=== PATIENT | male | born 1940 | race Caucasian/White ===

== ENCOUNTER → 2016-07-30 | Outpatient (CLI) | payer MEDICARE, OTHER ==
--- NOTE | 2016-07-31 10:14 | REP ---
PET/CT: HISTORY: Diagnosing lung carcinoma. COMPARISONS: CT scan of the chest from [facility] dated December 25, 2015 and July 02, 2016. These show a peripheral spiculated lesion in the left upper lobe. TECHNIQUE: 86 minutes following the intravenous injection of a 8.0 mCi dose of F-18 FDG, three-dimensional PET scintigraphy is acquired from the skull base to the proximal thighs. Triplanar noncontrast CT scanning is acquired through the same anatomic range for attenuation correction, and image registration with scan parameters optimized to minimize radiation exposure to the patient. PET scintigraphy and CT datasets were fused and displayed on a workstation with multiplanar and projection display capability. PET/CT FINDINGS: There is hypermetabolic uptake in the peripheral mass in the left upper lobe. Maximum standard uptake value is 19.8. Hypermetabolic uptake extends along a linear path craniocaudal dimension in this pleural-based lesion over 3.1 cm. No hypermetabolic hilar or mediastinal linnea uptake is seen. No other hypermetabolic uptake is seen in the chest. There is a large hiatal hernia again noted. No adrenal lesion is seen. There is a focal area of hypermetabolic uptake which projects in the intra-abdominal fat in the left lower quadrant of the abdomen. Corresponding CT images at this level shows only homogeneous normal appearing fatty tissue. 2 cm caudal to this there is a small area of fat necrosis which shows non hypermetabolic uptake. The hypermetabolic uptake in the fatty tissue has maximum standard uptake value 5.1. This is of uncertain etiology and significance. Otherwise abdominal and pelvic uptake pattern is normal. Incidental note is made of bilateral inguinal hernias. A unobstructed loop of sigmoid colon is seen in the left inguinal hernia and the right fundus of the urinary bladder is seen extending into the right inguinal hernia. IMPRESSION: 1. The known left upper lobe lung mass is quite hypermetabolic consistent with malignancy. 2. There is a focus of hypermetabolic uptake in homogeneous normal appearing fatty tissue within the left lower quadrant of the abdomen of uncertain significance. No other abnormal hypermetabolic uptake is seen. 3. Bilateral inguinal hernias are seen containing the urinary bladder on the right and the sigmoid colon on the left. Signed by Brannon Go MD 07/31/2016 05:36 P
== END ==
LOC: M RAD 14:00
PROVIDERS: ATTEND Internal Medicine Pulmonary Disease
DX: R91.8 Other nonspecific abnormal finding of lung field (principal); K40.20 Bilateral inguinal hernia, without obstruction or gangrene, not specified as recurrent
CPT/HCPCS: 78815; A9552

== ENCOUNTER → 2018-03-26 | Outpatient (CLI) | payer MEDICARE, OTHER | LOC: M SMT 09:02 | DX: J18.9 Pneumonia, unspecified organism (principal); K44.9 Diaphragmatic hernia without obstruction or gangrene; M51.24 Other intervertebral disc displacement, thoracic region | CPT/HCPCS: 71046 ==

== ENCOUNTER → 2024-03-22 | Outpatient (REF) | payer MEDICARE, OTHER ==
[2024-03-22 19:25] LABS: FERRITIN 232.1 NG/ML (10.5-307.3)
[2024-03-22 19:27] LABS: PERCENT SATURATION 27.1 % (19.7-50.0)
== END ==
LOC: M LAB REF 17:41
PROVIDERS: ATTEND Nurse Practitioner Family
DX: D50.9 Iron deficiency anemia, unspecified (principal)